=== PATIENT | female | born 2000 | race Caucasian/White ===

== ENCOUNTER 2021-10-29 18:42 | Outpatient (CLI) | payer OTHER | END 2021-10-29 20:04 | disposition home or self-care (01) | LOC: GENOP 18:42 | DX: O36.8130 Decreased fetal movements, third trimester, not applicable or unspecified (principal); Z3A.35 35 weeks gestation of pregnancy | CPT/HCPCS: 81001; G0463 ==

== ENCOUNTER 2021-11-09 23:16 | Outpatient (CLI) | payer OTHER | END 2021-11-10 00:57 | disposition home or self-care (01) | LOC: GENOP 23:16 | DX: O47.1 False labor at or after 37 completed weeks of gestation (principal); Z3A.37 37 weeks gestation of pregnancy | CPT/HCPCS: G0463 ==

== ENCOUNTER 2021-11-23 17:04 | Inpatient (IN) | payer OTHER ==
[~2021-11-23] VITALS: Ht 175.3 cm; Wt 94.3 kg
[2021-11-23 18:47] LABS: HEMOGLOBIN 10.5 gm/dl (12.3-15.3); RED BLOOD COUNT 4.09 M/UL (4.00-5.10)
[2021-11-24] MEDS ORDERED: HYDROCODON-ACE1 EAC4 PO (17:00)
[2021-11-24] MEDS ORDERED: COLACE 100MG C100 MG PO (17:00)
[2021-11-24] MEDS ORDERED: IBUPROFEN800 MG PO (17:00)
[2021-11-25 05:15] LABS: HEMOGLOBIN 9.9 gm/dl (12.3-15.3)
== END 2021-11-26 15:35 | disposition home or self-care (01) | DRG 807 ==
LOC: OB 17:04
PROVIDERS: Obstetrics & Gynecology; ADMIT Obstetrics & Gynecology
PROC: 10D07Z6 Extraction of Products of Conception, Vacuum, Via Natural or Artificial Opening (ICD-10-PCS; principal; 2021-11-23)
PROC: 0KQM0ZZ Repair Perineum Muscle, Open Approach (ICD-10-PCS; 2021-11-23)
PROC: 10907ZC Drainage of Amniotic Fluid, Therapeutic from Products of Conception, Via Natural or Artificial Opening (ICD-10-PCS; 2021-11-23)
PROC: 3E033VJ Introduction of Other Hormone into Peripheral Vein, Percutaneous Approach (ICD-10-PCS; 2021-11-23)
PROC: 4A1H7CZ Monitoring of Products of Conception, Cardiac Rate, Via Natural or Artificial Opening (ICD-10-PCS; 2021-11-23)
PROC: 10H073Z Insertion of Monitoring Electrode into Products of Conception, Via Natural or Artificial Opening (ICD-10-PCS; 2021-11-23)
PROC: 10H07YZ Insertion of Other Device into Products of Conception, Via Natural or Artificial Opening (ICD-10-PCS; 2021-11-23)
DX: O76 Abnormality in fetal heart rate and rhythm complicating labor and delivery (principal); Z37.0 Single live birth; Z20.822 Contact with and (suspected) exposure to COVID-19; O70.1 Second degree perineal laceration during delivery; Z3A.39 39 weeks gestation of pregnancy; Z90.89 Acquired absence of other organs; Z28.310 Unvaccinated for COVID-19; Z83.3 Family history of diabetes mellitus
CPT/HCPCS: 36415; 81001; 82800; 85014; 85018; 85025; 90715; J2590; J7120; U0002